=== PATIENT | male | born 1945 | race Caucasian/White ===

== ENCOUNTER 2018-12-13 08:48 | Inpatient (IN) | payer MEDICARE, OTHER ==
[~2018-12-13] VITALS: Ht 190.5 cm; Wt 147.2 kg
--- NOTE | 2018-12-13 09:22 | NUR ---
PT WITH C/O SWELLING IN RLE THREE DAYS AGO, PT STATES HIS LEG BEGAN TO TURN RED YESTERDAY APPROXIMATELY 1200. PT WITH WEAK PALPABLE PEDAL PULSES, STRONG DOPPLER. CMS INTACT.
[2018-12-13 09:54] LABS: MEAN CORPUSCULAR HEMOGLOBIN 29.9 pg (27.5-34.5); MEAN CORPUSCULAR HGB CONC 32.8 g/dL (33.2-36.2); MEAN CORPUSCULAR VOLUME 91.2 fL (81-97); MEAN PLATELET VOLUME 8.3 fL (7.4-10.4); PLATELET COUNT 168 x10^3/uL (130-400); RED BLOOD COUNT 4.92 x10^6/uL (4.38-5.82); RED CELL DISTRIBUTION WIDTH 13.4 % (9.4-14.8)
[2018-12-13 10:02] LABS: ALBUMIN 3.1 g/dL (3.4-5.0); ANION GAP 6 mmol/L (5-15); CALCIUM 8.1 mg/dL (8.5-10.1); CHLORIDE 103 mmol/L (98-107); CREATININE 0.79 mg/dL (0.7-1.3)
[2018-12-13 10:13] LABS: MD YES
[2018-12-13 10:15] LABS: <PLATELET ESTIMATE> ADEQUATE; <PLT MORPHOLOGY> NORMAL PLT MORPH; <RBC MORPHOLOGY> NORMAL; BANDS%(MANUAL) 16 % (0-7); LYMPHS% (MANUAL) 8 % (22-44); MONOS% (MANUAL) 3 % (2-9); SEGS% (MANUAL) 73 % (42-75)
--- NOTE | 2018-12-13 10:16 | NUR ---
PT BACK FROM US, RESULTS BACK. TO DISCUSS POC WITH PT. DIMITRI NOTED AT THIS TIME
--- NOTE | 2018-12-13 10:45 | NUR ---
PT TO BE ADMITTED, PIV INITIATED, BC DRAWN. WILL HANG IV ABX ABLE
[2018-12-13] MEDS ORDERED: CEFTRIAXONE PMX 1GM/50ML 50 ML ONE (10:47)
[2018-12-13] MEDS ORDERED: CEFTRIAXONE PMX 1GM/50ML 50 ML IV ONE (11:00)
[2018-12-13] MEDS ORDERED: SODIUM CHLORIDE FLUSH 10ML SYR IVF PRN (11:00)
--- NOTE | 2018-12-13 11:19 | NUR ---
REPORT CALLED TO RECIEVING RN
--- NOTE | 2018-12-13 11:37 | NUR ---
SLIP SENT TO PHARM FOR VANCO DOSE
[2018-12-13] MEDS ORDERED: MELO15TA24 PO (11:56)
[2018-12-13] MEDS ORDERED: ALLO300T PO (11:56)
[2018-12-13] MEDS ORDERED: VANCOMYCIN PER PHARMACY MC ONE (12:00)
[2018-12-13] MEDS ORDERED: VANCOMYCIN 2,500 MG in SODIUM CHLORIDE 0.9% 500 ML IV ONE (12:00)
[2018-12-13 12:29] VITALS: BP 148/83
[2018-12-13] MEDS ORDERED: PHARMACOKINETIC CONSULTATION MC ONE (13:30)
[2018-12-13] MEDS ORDERED: ZOLPIDEM 5MG TABLET PO PRN (13:30)
[2018-12-13] MEDS ORDERED: VANCOMYCIN PER PHARMACY MC PRN (13:30)
[2018-12-13] MEDS ORDERED: HYDROcodone/APAP 5/325 TABLET PO PRN (13:30)
[2018-12-13] MEDS ORDERED: PHARMACOKINETIC MONITORING MC PRN (13:30)
[2018-12-13] MEDS ORDERED: ACETAMINOPHEN 325 MG TABLET PO PRN (13:30)
[2018-12-13 14:00] VITALS: BP 118/71
[2018-12-13] MEDS: CEFTRIAXONE PMX 2GM/50ML 50 ML IV SCH (14:11)
[2018-12-13] MEDS: ENOXAPARIN 40 MG/0.4 ML SQ SCH (14:12)
[2018-12-13 19:48] VITALS: BP 167/87
[2018-12-14] MEDS: CEFTRIAXONE PMX 2GM/50ML 50 ML IV SCH ×2 (01:31→13:50)
[2018-12-14 01:34] VITALS: BP 125/71
[2018-12-14 06:39] LABS: ANION GAP 7 mmol/L (5-15); CALCIUM 7.8 mg/dL (8.5-10.1); CHLORIDE 103 mmol/L (98-107); CHOLESTEROL, TOTAL 110 mg/dL (140-239); CREATININE 0.73 mg/dL (0.7-1.3); MEAN CORPUSCULAR HEMOGLOBIN 30.3 pg (27.5-34.5); MEAN CORPUSCULAR HGB CONC 33.5 g/dL (33.2-36.2); MEAN CORPUSCULAR VOLUME 90.6 fL (81-97); MEAN PLATELET VOLUME 7.8 fL (7.4-10.4); PLATELET COUNT 190 x10^3/uL (130-400); RED CELL DISTRIBUTION WIDTH 13.7 % (9.4-14.8)
[2018-12-14 06:40] LABS: CHOL/HDL RATIO 3.9; HDL CHOL % 25 % (26-37); HDL CHOLESTEROL (DIRECT) 28 mg/dL (40-60); LDL CHOLESTEROL,CALCULATED 65 mg/dL (54-169); LDL/HDL RATIO 2.3 (0.5-3.0); TRIGLYCERIDES 87 mg/dL (50-200); VLDL CHOLESTEROL 17 mg/dL (0-25)
[2018-12-14 07:03] LABS: MD YES
[2018-12-14 07:05] LABS: <PLATELET ESTIMATE> ADEQUATE; <PLT MORPHOLOGY> NORMAL PLT MORPH; <RBC MORPHOLOGY> NORMAL; BAND#(MANUAL) 2.02 x10^3/uL; BANDS%(MANUAL) 13 % (0-7); LYMPH#(MANUAL) 0.78 x10^3/uL (1-3.4); LYMPHS% (MANUAL) 5 % (22-44); MONOS#(MANUAL) 1.24 x10^3/uL (0.3-2.7); MONOS% (MANUAL) 8 % (2-9); SEG#(MANUAL) 11.47 x10^3/uL (1.8-6.8); SEGS% (MANUAL) 74 % (42-75)
[2018-12-14 08:00] VITALS: BP 126/75
[2018-12-14] MEDS ORDERED: VANCOMYCIN 2,500 MG in SODIUM CHLORIDE 0.9% 500 ML IV SCH ×2 (09:30→12:00)
[2018-12-14] MEDS: VANCOMYCIN 2,500 MG in SODIUM CHLORIDE 0.9% 500 ML IV SCH (11:00)
[2018-12-14 12:47] VITALS: BP 128/71
[2018-12-14] MEDS: ENOXAPARIN 40 MG/0.4 ML SQ SCH (13:50)
[2018-12-14 19:53] VITALS: BP 113/69
[2018-12-15] MEDS: CEFTRIAXONE PMX 2GM/50ML 50 ML IV SCH (01:26)
[2018-12-15 01:31] VITALS: BP 132/83
[2018-12-15] MEDS: VANCOMYCIN 2,500 MG in SODIUM CHLORIDE 0.9% 500 ML IV SCH (04:50)
[2018-12-15 05:41] LABS: MEAN CORPUSCULAR HEMOGLOBIN 30.4 pg (27.5-34.5); MEAN CORPUSCULAR HGB CONC 33.6 g/dL (33.2-36.2); MEAN CORPUSCULAR VOLUME 90.4 fL (81-97); MEAN PLATELET VOLUME 7.8 fL (7.4-10.4); PLATELET COUNT 217 x10^3/uL (130-400); RED CELL DISTRIBUTION WIDTH 13.6 % (9.4-14.8)
[2018-12-15 05:47] LABS: ALBUMIN 2.3 g/dL (3.4-5.0); ANION GAP 6 mmol/L (5-15); CALCIUM 8.4 mg/dL (8.5-10.1); CHLORIDE 105 mmol/L (98-107)
[2018-12-15 05:58] LABS: ALANINE AMINOTRANSFERASE 24 U/L (12-78); ALKALINE PHOSPHATASE 113 U/L (45-117); BILIRUBIN,TOTAL 0.9 mg/dL (0.2-1.0); CREATININE 0.78 mg/dL (0.7-1.3); TOTAL PROTEIN 6.2 g/dL (6.4-8.2)
[2018-12-15 06:04] LABS: CALCIUM 8.4 mg/dL (8.5-10.1)
[2018-12-15 06:18] LABS: MD YES
[2018-12-15 06:19] LABS: <RBC MORPHOLOGY> NORMAL; BAND#(MANUAL) 0.35 x10^3/uL; BANDS%(MANUAL) 2 % (0-7); LYMPH#(MANUAL) 1.22 x10^3/uL (1-3.4); LYMPHS% (MANUAL) 7 % (22-44); MONOS#(MANUAL) 1.04 x10^3/uL (0.3-2.7); MONOS% (MANUAL) 6 % (2-9); SEG#(MANUAL) 14.79 x10^3/uL (1.8-6.8); SEGS% (MANUAL) 85 % (42-75)
[2018-12-15 06:20] LABS: <PLATELET ESTIMATE> ADEQUATE; <PLT MORPHOLOGY> NORMAL PLT MORPH
[2018-12-15 06:23] LABS: HEMOGLOBIN A1C 6.4 % (4.2-6.3)
[2018-12-15 07:51] VITALS: BP 94/63
[2018-12-15] MEDS: ALLOPURINOL 300 MG TABLET PO SCH (10:07)
[2018-12-15] MEDS: CEFTAROLINE 600 MG in SODIUM CHLORIDE 0.9% 100 ML IV SCH ×2 (11:22→23:10)
[2018-12-15 12:45] VITALS: BP 123/76
[2018-12-15] MEDS: ENOXAPARIN 40 MG/0.4 ML SQ SCH (14:10)
[2018-12-15] MEDS: INSULIN LISPRO 100 UNITS/ML, PEN SQ-INSULIN SCH ×2 (16:46→21:03)
[2018-12-15] MEDS ORDERED: VANCOMYCIN 2,500 MG in SODIUM CHLORIDE 0.9% 500 ML IV SCH (17:00)
[2018-12-15 18:52] VITALS: BP 117/74
[2018-12-16 00:56] VITALS: BP 106/65
[2018-12-16 05:58] LABS: HCT (SEDRATE) 36.6 % (39.2-51.8)
[2018-12-16 06:07] LABS: C-REACTIVE PROTEIN, QUANT > 19.00 mg/dL (0.02-0.49)
[2018-12-16 07:24] VITALS: BP 111/70
[2018-12-16] MEDS: INSULIN LISPRO 100 UNITS/ML, PEN SQ-INSULIN SCH ×4 (07:54→20:54)
[2018-12-16] MEDS: ALLOPURINOL 300 MG TABLET PO SCH (07:54)
[2018-12-16] MEDS: CEFTAROLINE 600 MG in SODIUM CHLORIDE 0.9% 100 ML IV SCH ×2 (11:18→23:08)
[2018-12-16 13:06] VITALS: BP 119/76
[2018-12-16] MEDS: ENOXAPARIN 40 MG/0.4 ML SQ SCH (13:30)
[2018-12-16] MEDS ORDERED: PNEUMOC 13-VALENT VACC, 0.5 ML IM-VACC ONE (16:00)
[2018-12-16 16:03] LABS: BASOPHILS # (AUTO) 0.02 x10^3/uL (0-0.1); BASOPHILS % (AUTO) 0 % (0-1); EOSINOPHILS # (AUTO) 0.17 x10^3/uL (0-0.4); EOSINOPHILS % (AUTO) 1 % (1-7); LYMPHOCYTES # (AUTO) 0.92 x10^3/uL (1-3.4); LYMPHOCYTES % (AUTO) 7 % (22-44); MD NO; MEAN CORPUSCULAR HEMOGLOBIN 30.1 pg (27.5-34.5); MEAN CORPUSCULAR HGB CONC 32.4 g/dL (33.2-36.2); MEAN CORPUSCULAR VOLUME 92.8 fL (81-97); MEAN PLATELET VOLUME 8.2 fL (7.4-10.4); MONOCYTES # (AUTO) 0.43 x10^3/uL (0.2-0.8); MONOCYTES % (AUTO) 3 % (2-9); NEUTROPHILS # (AUTO) 11.39 x10^3/uL (1.8-6.8); NEUTROPHILS % (AUTO) 88 % (42-75); PLATELET COUNT 300 x10^3/uL (130-400); RED CELL DISTRIBUTION WIDTH 14.1 % (9.4-14.8)
[2018-12-16 20:16] VITALS: BP 136/72
[2018-12-17 01:27] VITALS: BP 106/67
[2018-12-17 07:05] VITALS: BP 107/68
[2018-12-17] MEDS: INSULIN LISPRO 100 UNITS/ML, PEN SQ-INSULIN SCH ×4 (07:48→20:59)
[2018-12-17] MEDS: ALLOPURINOL 300 MG TABLET PO SCH (07:48)
[2018-12-17] MEDS: CEFTAROLINE 600 MG in SODIUM CHLORIDE 0.9% 100 ML IV SCH ×2 (11:31→23:31)
[2018-12-17 12:42] VITALS: BP 114/68
[2018-12-17] MEDS: ENOXAPARIN 40 MG/0.4 ML SQ SCH (13:26)
[2018-12-17 19:38] VITALS: BP 109/71
[2018-12-18 02:04] VITALS: BP 111/75
[2018-12-18 07:40] VITALS: BP 108/73
[2018-12-18] MEDS: INSULIN LISPRO 100 UNITS/ML, PEN SQ-INSULIN SCH ×4 (07:45→20:02)
[2018-12-18] MEDS: ALLOPURINOL 300 MG TABLET PO SCH (07:46)
[2018-12-18] MEDS: TERBINAFINE 250MG TABLET PO SCH (11:28)
[2018-12-18] MEDS: CEFTAROLINE 600 MG in SODIUM CHLORIDE 0.9% 100 ML IV SCH ×2 (11:29→23:26)
[2018-12-18 12:29] VITALS: BP 113/70
[2018-12-18] MEDS: ENOXAPARIN 40 MG/0.4 ML SQ SCH (13:22)
[2018-12-18 19:50] VITALS: BP 125/75
[2018-12-19 04:30] VITALS: BP 111/77
[2018-12-19 06:21] LABS: BASOPHILS % (AUTO) 0 % (0-1); EOSINOPHILS # (AUTO) 0.13 x10^3/uL (0-0.4); EOSINOPHILS % (AUTO) 2 % (1-7); LYMPHOCYTES # (AUTO) 0.79 x10^3/uL (1-3.4); LYMPHOCYTES % (AUTO) 11 % (22-44); MD NO; MEAN CORPUSCULAR HGB CONC 32.4 g/dL (33.2-36.2); MEAN CORPUSCULAR VOLUME 92.7 fL (81-97); MEAN PLATELET VOLUME 7.3 fL (7.4-10.4); MONOCYTES # (AUTO) 0.54 x10^3/uL (0.2-0.8); MONOCYTES % (AUTO) 7 % (2-9); NEUTROPHILS # (AUTO) 6.01 x10^3/uL (1.8-6.8); NEUTROPHILS % (AUTO) 80 % (42-75); PLATELET COUNT 382 x10^3/uL (130-400); RED BLOOD COUNT 4.13 x10^6/uL (4.38-5.82); RED CELL DISTRIBUTION WIDTH 13.9 % (9.4-14.8)
[2018-12-19 06:49] VITALS: BP 124/75
[2018-12-19] MEDS: INSULIN LISPRO 100 UNITS/ML, PEN SQ-INSULIN SCH ×4 (07:30→21:13)
[2018-12-19] MEDS: TERBINAFINE 250MG TABLET PO SCH (07:48)
[2018-12-19] MEDS: ALLOPURINOL 300 MG TABLET PO SCH (07:48)
[2018-12-19] MEDS: CEFTAROLINE 600 MG in SODIUM CHLORIDE 0.9% 100 ML IV SCH ×2 (11:22→23:46)
[2018-12-19] MEDS ORDERED: DAPTOMYCIN 900 MG in SODIUM CHLORIDE 0.9% 100 ML IV ONE (11:30)
[2018-12-19 12:35] VITALS: BP 123/76
[2018-12-19] MEDS: ENOXAPARIN 40 MG/0.4 ML SQ SCH (13:36)
[2018-12-19 18:50] VITALS: BP 117/72
[2018-12-20 01:42] VITALS: BP 116/73
[2018-12-20 07:30] VITALS: BP 113/69
[2018-12-20] MEDS: ALLOPURINOL 300 MG TABLET PO SCH (08:04)
[2018-12-20] MEDS: INSULIN LISPRO 100 UNITS/ML, PEN SQ-INSULIN SCH ×4 (08:04→21:00)
[2018-12-20] MEDS: TERBINAFINE 250MG TABLET PO SCH (08:04)
[2018-12-20] MEDS: CEFTAROLINE 600 MG in SODIUM CHLORIDE 0.9% 100 ML IV SCH ×2 (12:11→23:06)
[2018-12-20 13:21] VITALS: BP 125/76
[2018-12-20] MEDS: ENOXAPARIN 40 MG/0.4 ML SQ SCH (13:44)
[2018-12-20 19:21] VITALS: BP 113/70
[2018-12-21 01:47] VITALS: BP 131/80
[2018-12-21 06:34] LABS: CREATININE 0.73 mg/dL (0.7-1.3)
[2018-12-21] MEDS: INSULIN LISPRO 100 UNITS/ML, PEN SQ-INSULIN SCH ×2 (07:00→11:00)
[2018-12-21 07:42] VITALS: BP 131/69
[2018-12-21] MEDS ORDERED: DOXY100C2 PO (08:48)
[2018-12-21] MEDS ORDERED: TERB250T14 PO (08:48)
[2018-12-21] MEDS ORDERED: DAPTOMYCIN 900 MG in SODIUM CHLORIDE 0.9% 100 ML IV ONE (09:00)
[2018-12-21] MEDS: TERBINAFINE 250MG TABLET PO SCH (09:50)
[2018-12-21] MEDS: ALLOPURINOL 300 MG TABLET PO SCH (09:50)
[2018-12-21] MEDS: CEFTAROLINE 600 MG in SODIUM CHLORIDE 0.9% 100 ML IV SCH (10:55)
[2018-12-21] MEDS ORDERED: LINE600T12 PO (12:24)
[2018-12-21] MEDS ORDERED: DOXYCYCLINE 100MG CAP PO SCH (18:00)
== END 2018-12-21 12:35 | disposition home health service (06) | DRG 872 ==
LOC: ED 10:51 → EDIP 10:55 → 3N 12:02 → DCLOUNGE 12-21 12:20
PROVIDERS: ADMIT Internal Medicine; ATTEND Internal Medicine
DX: A41.9 Sepsis, unspecified organism (principal); L03.115 Cellulitis of right lower limb; Z88.0 Allergy status to penicillin; E83.51 Hypocalcemia; E88.09 Other disorders of plasma-protein metabolism, not elsewhere classified; M10.9 Gout, unspecified; M17.0 Bilateral primary osteoarthritis of knee; R73.03 Prediabetes; Z79.899 Other long term (current) drug therapy; Z82.49 Family history of ischemic heart disease and other diseases of the circulatory system; Z85.46 Personal history of malignant neoplasm of prostate; Z87.442 Personal history of urinary calculi
CPT/HCPCS: 36415; 80048; 80053; 80061; 82040; 82310; 82565; 82962; 83036; 83605; 83970; 84145; 84550; 85025; 85651; 86140; 87040; 93306; 96365; 96367; G0378; J0696; J0712; J0878; J1650; J3370; G0009; J1815; J7040